=== PATIENT | female | born 1990 ===

== ENCOUNTER 2020-04-12 15:45 | Outpatient (CLI) | payer OTHER ==
--- NOTE | 2020-04-12 20:11 | Ultrasound Report ---
ULTRASOUND OBSTETRIC LIMITED ULTRASOUND BIOPHYSICAL PROFILE INDICATION / CLINICAL INFORMATION: BPP and SONAM. Clinical Gestational Age (GA): 38.3 weeks.days COMPARISON: None available. FINDINGS: BREATHING MOVEMENT = 2 GROSS BODY MOVEMENT = 2 TONE = 2 QUALITATIVE AMNIOTIC FLUID VOLUME = 2 TOTAL BIOPHYSICAL SCORE = 8/8 HEART RATE (beats per minute): 141 AMNIOTIC FLUID INDEX (cm) = 8.4 (normal = 7-24 cm) PRESENTATION: Cephalic. ADDITIONAL FINDINGS: None. IMPRESSION: 1. Biophysical Score = 8/8 Signer Name: Jamey Stratton MD Signed: 04/12/2020 8:06 PM Workstation Name: [id number]
[2020-04-12 20:27] VITALS: BP 123/65
--- NOTE | 2020-04-13 06:52 | Ultrasound Report ---
Please see combined report for ultrasound OB Limited and ultrasound biophysical profile. Combin ed report is under the ultrasound OB biophysical profile heading. Signer Name: Hilary Morales MD Signed: 04/13/2020 6:48 AM Workstation Name: [id number]
== END 2020-04-12 19:55 | disposition home or self-care (01) ==
LOC: TRG 15:45 → APU 16:41 → TRG 19:55
PROVIDERS: ATTEND Obstetrics & Gynecology
DX: O42.92 Full-term premature rupture of membranes, unspecified as to length of time between rupture and onset of labor (principal); Z3A.38 38 weeks gestation of pregnancy
CPT/HCPCS: 59025; 76815; 76819

== ENCOUNTER 2020-05-01 20:26 | Inpatient (IN) | payer OTHER ==
[2020-05-01] MEDS ORDERED: fentaNYL 100 MCG/2 ML INJ IV PRN (21:59)
[2020-05-01] MEDS ORDERED: TERBUTALINE 1 MG/1 ML INJ SUB-Q PRN (21:59)
[2020-05-01] MEDS ORDERED: ONDANSETRON 4 MG/2 ML INJ IV PRN (21:59)
[2020-05-01] MEDS ORDERED: ePHEDrine SULFATE 50 MG/1 ML INJ IV PRN (21:59)
[2020-05-01] MEDS ORDERED: BUTORPHANOL 2 MG/1 ML INJ IV PRN ×2 (21:59)
[2020-05-01] MEDS ORDERED: LIDOCAINE (2%) 20 MG/1 ML VIAL 20 ML MDV INFILTRATI ONE (21:59)
[2020-05-01] MEDS ORDERED: MINERAL OIL 30 ML ORAL LIQD PO PRN (21:59)
[2020-05-01] MEDS ORDERED: ACETAMINOPHEN 325 MG TAB PO PRN (21:59)
[2020-05-01] MEDS ORDERED: DINOPROSTONE 10 MG VAG SUPP VG ONE (22:15)
[2020-05-01] MEDS: LACTATED RINGERS 1,000 ML IV SCH (22:31)
[2020-05-01 22:52] LABS: Hematocrit 30.3 % (30.3-42.9); Hemoglobin 10.5 gm/dl (10.1-14.3); Mean Corpuscular HGB Conc 35 % (30-34); Mean Corpuscular Volume 95 fl (79-97); Platelet Count 279 K/mm3 (140-440); Red Blood Count 3.19 M/mm3 (3.65-5.03); Red Cell Distribution Width 13.6 % (13.2-15.2)
--- NOTE | 2020-05-02 01:11 | History and Physical Report ---
History of Present Illness Date of examination: 05/02/20 Date of admission: 05/01/20 20:26 Chief complaint: IOL History of present illness: 29 yo, G1 @ 41.2 wks, initiated care with [facility] at 16.3 wks gestation. Her has been uncomplicated. [facility] for IOL secondary to post-date . She reports + FM. Denies any VB or LOF. Labs: O+, antibody negative; rubella immune; RPR negative; HBsAg negative; HIV nega tive; GC/Chlamydia negative; quad screen negative; 1 hr gtt normal per PNR; GBS negative per PNR. Past History Past Medical History: no pertinent history Past Surgical History: no surgical history Family/Genetic History: diabetes (GM), hypertension (Mother), mental retardation (type unknown, uncle and aunt of pt have genetic disorder) Social history: , full code. denies: smoking, alcohol abuse, prescription drug abuse, IV drug use - Obstetrical History Expected Date of Delivery: 04/23/20 Actual Gestation: 41 Week(s) 2 Day(s) : 1 Para: 0 Hx # Term Pregnancies: 0 Number of Pregnancies: 0 Spontaneous Abortions: 0 Induced : 0 Number of Living Children: 0 Medications and Allergies Allergies Allergy/AdvReac Type Severity Reaction Status Date / Time No Known Allergies Allergy Unverified 04/12/20 17:11 Home Medications Medication Instructions Recorded Confirmed Last Taken Type No Known Home Medications [No 05/01/20 05/01/20 Unknown History Reported Home Medications] Active Meds: Active Medications Acetaminophen (Tylenol) 650 mg PO Q4H PRN PRN Reason: Pain, Mild (1-3) Butorphanol Tartrate (Stadol) 2 mg IV Q2H PRN PRN Reason: Pain , Severe (7-10) Butorphanol Tartrate (Stadol) 1 mg IV Q2H PRN PRN Reason: Pain, Moderate(4-6) LABOR PAIN Ephedrine Sulfate (Ephedrine Sulfate) 10 mg IV Q2M PRN PRN Reason: Hypotension Fentanyl (Sublimaze) 100 mcg IV Q2H PRN PRN Reason: Pain,Severe (7-10) LABOR PAIN Lactated Ringer's (Lactated Ringers) 1,000 mls @ 125 mls/hr IV DIRECT ADRIENNE Last Admin: 12/01/20 22:31 Dose: 125 mls/hr Documented by: Oxytocin/Sodium Chloride (Pitocin/Ns 30 Unit/500ml) 30 units in 500 mls @ 40 mls/hr IV TITR ADRIENNE; Protocol Mineral Oil (Mineral Oil) 30 ml PO QHS PRN PRN Reason: Constipation Ondansetron HCl (Zofran) 4 mg IV Q8H PRN PRN Reason: Nausea And Vomiting Terbutaline Sulfate (Brethine) 0.25 mg SUB-Q ONCE PRN PRN Reason: Hyperstimulation/Hypertonicity Review of Systems All systems: negative Genitourinary: contractions (irregular) - Vital Signs Vital signs: Vital Signs Temp Pulse Resp BP 99.1 F 81 18 120/77 05/01/20 20:58 05/01/20 20:58 05/01/20 20:58 05/01/20 20:58 Temp Pulse Resp BP Pulse Ox 99.1 F 70 18 120/77 98 05/01/20 20:58 05/02/20 00:59 05/01/20 20:58 05/01/20 20:59 05/02/20 00:59 - Physical Exam Breasts: Positive: normal Cardiovascular: Regular rate Lungs: Positive: Normal air movement Abdomen: Positive: other (gravid) Uterus: Positive: enlarged (S=D) - Obstetrical FHR: category 1 Uterine Contraction Monitor Mode: External Cervical Dilatation: 1 (per RN) Cervical Effacement Percentage: 40 (per RN) station: -3 Uterine Contraction Frequency (min): 2-5 Uterine Contraction Pattern: Irregular Uterine Tone Measurement Phase: Resting Uterine Contraction Intensity: Mild Results Result Diagrams: 05/01/20 21:59 Abnormal lab results 05/01/20 Range/Units 21:59 RBC 3.19 L (3.65-5.03) M/mm3 MCH 33 H (28-32) pg MCHC 35 H (30-34) % All other labs normal. Assessment and Plan - Patient Problems (1) Encounter for induction of labor Current Visit: Yes Status: Acute Plan to address problem: Place Cervidil x 12 hrs as tolerated Pain meds as desired per order Anticipate (2) Patient is [employer] Current Visit: Yes Status: Acute
[2020-05-02] MEDS: LACTATED RINGERS 1,000 ML IV SCH ×2 (06:31→13:26)
[2020-05-02] MEDS ORDERED: NITRAZINE (URINE TESTING PAPER) MC ONE (11:10)
--- NOTE | 2020-05-02 12:34 | Progress Note ---
Assessment and Plan A: IUP at 41 2/7 weeks Category I tracing Latent Labor GBS Negative P: Cervidil Induction Subjective - Subjective Date of service: 05/02/20 Patient reports: loss of fluid (SROM of a small amount of clear fluid at 1100 per RN), movement normal, contractions Objective - Vital Signs Vital Signs: Vital Signs - 12hr 05/02/20 05/02/20 05/02/20 00:29 00:34 00:39 Temperature Pulse Rate 70 67 64 Blood Pressure Blood Pressure [Right] O2 Sat by Pulse 99 98 98 Oximetry 05/02/20 05/02/20 05/02/20 00:44 00:49 00:54 Temperature Pulse Rate 64 63 62 Blood Pressure Blood Pressure [Right] O2 Sat by Pulse 99 99 99 Oximetry 05/02/20 05/02/20 05/02/20 00:59 01:04 01:11 Temperature Pulse Rate 70 67 59 L Blood Pressure Blood Pressure [Right] O2 Sat by Pulse 98 98 99 Oximetry 05/02/20 05/02/20 05/02/20 01:16 01:21 01:26 Temperature Pulse Rate 60 64 69 Blood Pressure Blood Pressure [Right] O2 Sat by Pulse 99 99 98 Oximetry 05/02/20 05/02/20 05/02/20 01:29 01:31 01:36 Temperature 98.9 F Pulse Rate 58 L 57 L 79 Blood Pressure 140/72 Blood Pressure 140/72 [Right] O2 Sat by Pulse 99 99 Oximetry 05/02/20 05/02/20 05/02/20 01:41 01:46 01:51 Temperature Pulse Rate 65 70 69 Blood Pressure Blood Pressure [Right] O2 Sat by Pulse 99 99 99 Oximetry 05/02/20 05/02/20 05/02/20 01:56 02:01 02:06 Temperature Pulse Rate 71 63 69 Blood Pressure Blood Pressure [Right] O2 Sat by Pulse 99 98 99 Oximetry 05/02/20 05/02/20 05/02/20 02:11 02:16 02:21 Temperature Pulse Rate 71 75 72 Blood Pressure Blood Pressure [Right] O2 Sat by Pulse 99 99 99 Oximetry 05/02/20 05/02/20 05/02/20 02:26 02:31 02:36 Temperature Pulse Rate 74 73 73 Blood Pressure Blood Pressure [Right] O2 Sat by Pulse 98 98 98 Oximetry 05/02/20 05/02/20 05/02/20 02:41 02:46 02:51 Temperature Pulse Rate 68 72 75 Blood Pressure Blood Pressure [Right] O2 Sat by Pulse 100 100 99 Oximetry 05/02/20 05/02/20 05/02/20 03:04 03:09 03:14 Temperature Pulse Rate 68 70 73 Blood Pressure Blood Pressure [Right] O2 Sat by Pulse 99 98 99 Oximetry 05/02/20 05/02/20 05/02/20 03:19 03:24 03:29 Temperature Pulse Rate 80 79 82 Blood Pressure Blood Pressure [Right] O2 Sat by Pulse 99 99 100 Oximetry 05/02/20 05/02/20 05/02/20 03:34 03:39 03:44 Temperature Pulse Rate 67 86 72 Blood Pressure Blood Pressure [Right] O2 Sat by Pulse 99 99 98 Oximetry 05/02/20 05/02/20 05/02/20 03:49 03:54 03:59 Temperature Pulse Rate 88 78 83 Blood Pressure Blood Pressure [Right] O2 Sat by Pulse 98 99 98 Oximetry 05/02/20 05/02/20 05/02/20 04:04 04:09 04:20 Temperature Pulse Rate 76 80 83 Blood Pressure Blood Pressure [Right] O2 Sat by Pulse 98 97 99 Oximetry 05/02/20 05/02/20 05/02/20 04:25 04:30 04:35 Temperature Pulse Rate 76 83 85 Blood Pressure Blood Pressure [Right] O2 Sat by Pulse 98 99 99 Oximetry 05/02/20 05/02/20 05/02/20 04:40 04:45 04:50 Temperature Pulse Rate 88 83 78 Blood Pressure Blood Pressure [Right] O2 Sat by Pulse 97 98 97 Oximetry 05/02/20 05/02/20 05/02/20 04:55 05:00 05:05 Temperature Pulse Rate 79 78 71 Blood Pressure Blood Pressure [Right] O2 Sat by Pulse 97 97 97 Oximetry 05/02/20 05/02/20 05/02/20 05:10 05:15 05:20 Temperature Pulse Rate 67 83 69 Blood Pressure Blood Pressure [Right] O2 Sat by Pulse 98 98 96 Oximetry 05/02/20 05/02/20 05/02/20 05:25 05:30 05:40 Temperature Pulse Rate 76 91 H 77 Blood Pressure Blood Pressure [Right] O2 Sat by Pulse 95 98 99 Oximetry 05/02/20 05/02/20 05/02/20 05:45 05:50 05:55 Temperature Pulse Rate 71 77 68 Blood Pressure Blood Pressure [Right] O2 Sat by Pulse 99 98 99 Oximetry 05/02/20 05/02/20 05/02/20 06:00 06:05 06:10 Temperature Pulse Rate 74 73 65 Blood Pressure Blood Pressure [Right] O2 Sat by Pulse 100 100 99 Oximetry 05/02/20 05/02/20 05/02/20 06:15 06:20 06:25 Temperature Pulse Rate 63 63 68 Blood Pressure Blood Pressure [Right] O2 Sat by Pulse 98 98 98 Oximetry 05/02/20 05/02/20 05/02/20 06:27 06:30 06:35 Temperature 98.8 F Pulse Rate 70 63 Blood Pressure Blood Pressure [Right] O2 Sat by Pulse 99 98 Oximetry 05/02/20 05/02/20 05/02/20 06:40 06:45 06:50 Temperature Pulse Rate 78 74 70 Blood Pressure Blood Pressure [Right] O2 Sat by Pulse 99 99 98 Oximetry 05/02/20 05/02/20 05/02/20 06:55 07:00 07:05 Temperature Pulse Rate 74 83 66 Blood Pressure Blood Pressure [Right] O2 Sat by Pulse 98 99 98 Oximetry 05/02/20 05/02/20 05/02/20 07:10 07:15 07:20 Temperature Pulse Rate 76 75 74 Blood Pressure Blood Pressure [Right] O2 Sat by Pulse 97 97 97 Oximetry 05/02/20 05/02/20 05/02/20 07:25 07:30 07:46 Temperature Pulse Rate 74 89 73 Blood Pressure Blood Pressure [Right] O2 Sat by Pulse 97 97 98 Oximetry 05/02/20 05/02/20 05/02/20 07:51 07:56 08:01 Temperature Pulse Rate 93 H 74 70 Blood Pressure Blood Pressure [Right] O2 Sat by Pulse 97 97 98 Oximetry 05/02/20 05/02/20 05/02/20 08:06 08:11 08:16 Temperature Pulse Rate 77 94 H 84 Blood Pressure Blood Pressure [Right] O2 Sat by Pulse 98 98 98 Oximetry 05/02/20 05/02/20 05/02/20 08:21 08:26 08:31 Temperature Pulse Rate 69 91 H 67 Blood Pressure Blood Pressure [Right] O2 Sat by Pulse 98 98 98 Oximetry 05/02/20 05/02/20 05/02/20 08:36 08:41 08:46 Temperature Pulse Rate 72 72 66 Blood Pressure Blood Pressure [Right] O2 Sat by Pulse 99 98 99 Oximetry 05/02/20 05/02/20 05/02/20 08:51 08:56 09:06 Temperature Pulse Rate 66 68 74 Blood Pressure Blood Pressure [Right] O2 Sat by Pulse 98 97 99 Oximetry 05/02/20 05/02/20 05/02/20 09:11 09:16 09:21 Temperature Pulse Rate 74 73 71 Blood Pressure Blood Pressure [Right] O2 Sat by Pulse 99 97 98 Oximetry 05/02/20 05/02/20 05/02/20 09:26 09:31 09:36 Temperature Pulse Rate 72 66 66 Blood Pressure Blood Pressure [Right] O2 Sat by Pulse 98 97 97 Oximetry 05/02/20 05/02/20 05/02/20 09:41 09:46 09:51 Temperature Pulse Rate 67 71 64 Blood Pressure Blood Pressure [Right] O2 Sat by Pulse 97 98 98 Oximetry 05/02/20 05/02/20 05/02/20 09:56 10:01 10:06 Temperature Pulse Rate 63 88 71 Blood Pressure Blood Pressure [Right] O2 Sat by Pulse 98 98 98 Oximetry 05/02/20 05/02/20 05/02/20 10:11 10:16 10:21 Temperature Pulse Rate 66 64 64 Blood Pressure Blood Pressure [Right] O2 Sat by Pulse 97 98 97 Oximetry 05/02/20 05/02/20 05/02/20 10:34 10:39 10:40 Temperature Pulse Rate 63 71 67 Blood Pressure 133/78 Blood Pressure [Right] O2 Sat by Pulse 98 98 Oximetry 05/02/20 05/02/20 05/02/20 10:43 10:44 10:49 Temperature Pulse Rate 68 75 82 Blood Pressure 116/66 Blood Pressure [Right] O2 Sat by Pulse 98 98 Oximetry 05/02/20 05/02/20 05/02/20 10:54 10:59 11:04 Temperature Pulse Rate 65 81 79 Blood Pressure Blood Pressure [Right] O2 Sat by Pulse 99 98 98 Oximetry 05/02/20 05/02/20 05/02/20 11:09 11:14 11:19 Temperature Pulse Rate 77 84 76 Blood Pressure Blood Pressure [Right] O2 Sat by Pulse 99 99 99 Oximetry 05/02/20 05/02/20 05/02/20 11:24 11:29 11:34 Temperature Pulse Rate 65 80 63 Blood Pressure Blood Pressure [Right] O2 Sat by Pulse 99 98 99 Oximetry 05/02/20 05/02/20 05/02/20 11:39 11:44 11:49 Temperature Pulse Rate 79 71 79 Blood Pressure Blood Pressure [Right] O2 Sat by Pulse 98 97 99 Oximetry 05/02/20 05/02/20 05/02/20 11:54 12:07 12:12 Temperature Pulse Rate 71 71 63 Blood Pressure Blood Pressure [Right] O2 Sat by Pulse 98 98 98 Oximetry 05/02/20 05/02/20 12:17 12:22 Temperature Pulse Rate 83 82 Blood Pressure Blood Pressure [Right] O2 Sat by Pulse 98 99 Oximetry - Exam Breasts: normal Cardiovascular: Regular rate Lungs: Normal air movement Abdomen: Present: normal appearance, soft Uterus: Present: normal, firm, fundal height above umbilicus FHR: category 1 Uterine Contraction Monitor Mode: External Cervical Dilatation: 2 (small amount of clear fluid noted on exam) Cervical Effacement Percentage: 50 station: -1 Uterine Contraction Frequency (min): 2 Uterine Contraction Pattern: Regular Uterine Tone Measurement Phase: Resting Uterine Contraction Intensity: Mild Extremities: normal - Labs Labs: Abnormal Labs 05/01/20 21:59 RBC 3.19 L MCH 33 H MCHC 35 H Laboratory Results - last 24 hr 05/01/20 05/01/20 05/01/20 21:46 21:59 21:59 WBC 7.3 RBC 3.19 L Hgb 10.5 Hct 30.3 MCV 95 MCH 33 H MCHC 35 H RDW 13.6 Plt Count 279 Syphilis IgG Antibody Nonreactive Blood Type O POSITIVE Antibody Screen Negative
[2020-05-02] MEDS ORDERED: DINOPROSTONE 10 MG VAG SUPP VG ONE (12:35)
[2020-05-03] MEDS: OXYTOCIN DRIP 30 UNITS/500 ML BAG IV SCH (06:27)
[2020-05-03] MEDS ORDERED: AMPICILLIN/NS 2 GM/100 ML 2 GM/100 ML BAG IV ONE (10:00)
--- NOTE | 2020-05-03 10:15 | Anesthesia Consultation ---
Anesthesia Consult and Med Hx Date of service: 05/03/20 - Airway Anesthetic Teeth Evaluation: Good ROM Head & Neck: Adequate Mental/Hyoid Distance: Adequate Mallampati Class: Class II Intubation Access Assessment: Probably Good - Pulmonary Exam CTA: Yes - Cardiac Exam Cardiac Exam: RRR - Pre-Operative Health Status ASA Pre-Surgery Classification: ASA2 Proposed Anesthetic Plan: Epidural - Pulmonary Hx Asthma: No - Cardiovascular System Hx Hypertension: No - Central Nervous System Hx Seizures: No Hx Psychiatric Problems: No - Endocrine Hx Renal Disease: No Hx Hypothyroidism: No Hx Hyperthyroidism: No - Hematic Hx Anemia: No Hx Sickle Cell Disease: No - Other Systems Hx Alcohol Use: No
[2020-05-03] MEDS ORDERED: ePHEDrine SULFATE 50 MG/1 ML INJ IV PRN (10:30)
[2020-05-03] MEDS ORDERED: NALOXONE 2 MG/2 ML INJ IV PRN (10:30)
[2020-05-03] MEDS: LACTATED RINGERS 1,000 ML IV SCH ×2 (12:00→13:00)
--- NOTE | 2020-05-03 13:06 | Progress Note ---
Labor Epidural - Labor Epidural Start Time: 12:49 Stop Time: 13:01 Performed by:: JIAN ARMENTA Procedure: Patient is requesting epidural for labor pain. H&P, and labs reviewed. Procedure explained, questions answered, consent obtained. Patient in sitting position with blood pressure cuff and pulse ox on and working. Timeout performed immediately before start of procedure. Sterile betadine prep/drape. 3 mL 1% lidocaine skin wheal at L[3]-L[4]. 18-gauge REHAPP epidural needle advanced to [id number] with saline at [7] cm. Epidural dexmedetomidine [30] mcg administered. Epidural catheter advanced to [12] cm, negative aspiration for blood and csf, negative test dose 3 ml 1.5% lidocaine with epinephrine. Sterile steri-strips and tegaderm applied, followed by tape reinforcement. Patient tolerated procedure well. Hiram MOY
[2020-05-03] MEDS: fentaNYL-BUPIV 2 MCG/ML-0.125% 200 MCG/100 ML BAG EPIDURAL SCH (13:50)
[2020-05-03] MEDS: AMPICILLIN/NS 1 GM/50 ML 1 GM/50 ML BAG IV SCH ×3 (15:28→23:27)
--- NOTE | 2020-05-03 19:20 | Progress Note ---
Assessment and Plan A: IUP@ 41.3 wks postdates [facility] PROM ([facility]) P: Continue monitoring ABT for PROM Pain med/ Epidural prn Anticipate - Patient Problems (1) SPROM (prolonged spontaneous rupture of membranes) Current Visit: Yes Status: Acute Subjective - Subjective Date of service: 05/03/20 Principal diagnosis: postdates Patient reports: movement normal, contractions Objective - Vital Signs Vital Signs: Vital Signs - 12hr 05/03/20 05/03/20 05/03/20 07:14 07:19 07:20 Temperature Pulse Rate 88 71 68 Respiratory Rate Blood Pressure 130/78 Blood Pressure [Right] O2 Sat by Pulse 100 99 Oximetry 05/03/20 05/03/20 05/03/20 07:24 07:29 07:32 Temperature Pulse Rate 76 73 67 Respiratory Rate Blood Pressure 142/93 Blood Pressure [Right] O2 Sat by Pulse 99 99 Oximetry 05/03/20 05/03/20 05/03/20 07:34 07:37 07:39 Temperature 98.3 F Pulse Rate 69 73 69 Respiratory 20 Rate Blood Pressure Blood Pressure 130/78 [Right] O2 Sat by Pulse 99 99 99 Oximetry 05/03/20 05/03/20 05/03/20 07:50 07:55 08:00 Temperature Pulse Rate 71 69 76 Respiratory Rate Blood Pressure Blood Pressure [Right] O2 Sat by Pulse 99 99 99 Oximetry 05/03/20 05/03/20 05/03/20 08:04 08:05 08:10 Temperature Pulse Rate 67 69 79 Respiratory Rate Blood Pressure 168/76 Blood Pressure [Right] O2 Sat by Pulse 99 99 Oximetry 05/03/20 05/03/20 05/03/20 08:15 08:20 08:25 Temperature Pulse Rate 61 58 L 72 Respiratory Rate Blood Pressure Blood Pressure [Right] O2 Sat by Pulse 98 98 99 Oximetry 05/03/20 05/03/20 05/03/20 08:30 08:33 08:35 Temperature Pulse Rate 80 70 67 Respiratory Rate Blood Pressure 129/58 Blood Pressure [Right] O2 Sat by Pulse 99 99 Oximetry 05/03/20 05/03/20 05/03/20 08:40 08:45 08:50 Temperature Pulse Rate 51 L 54 L 74 Respiratory Rate Blood Pressure Blood Pressure [Right] O2 Sat by Pulse 100 99 99 Oximetry 1205/03/20 05/03/20 08:55 09:00 09:02 Temperature Pulse Rate 61 70 62 Respiratory Rate Blood Pressure 137/77 Blood Pressure [Right] O2 Sat by Pulse 98 99 Oximetry 05/03/20 05/03/20 05/03/20 09:05 09:10 09:15 Temperature Pulse Rate 65 74 64 Respiratory Rate Blood Pressure Blood Pressure [Right] O2 Sat by Pulse 99 99 98 Oximetry 05/03/20 05/03/20 05/03/20 09:20 09:25 09:30 Temperature Pulse Rate 78 69 73 Respiratory Rate Blood Pressure Blood Pressure [Right] O2 Sat by Pulse 98 99 99 Oximetry 05/03/20 05/03/20 05/03/20 09:33 09:35 09:39 Temperature 99.5 F Pulse Rate 60 64 Respiratory Rate Blood Pressure 129/63 Blood Pressure [Right] O2 Sat by Pulse 98 Oximetry 05/03/20 05/03/20 05/03/20 09:40 09:45 09:50 Temperature Pulse Rate 75 78 112 H Respiratory Rate Blood Pressure Blood Pressure [Right] O2 Sat by Pulse 98 99 97 Oximetry 05/03/20 05/03/20 05/03/20 09:55 10:00 10:04 Temperature 98.8 F Pulse Rate 72 78 80 Respiratory 20 Rate Blood Pressure 159/97 Blood Pressure [Right] O2 Sat by Pulse 99 99 Oximetry 05/03/20 05/03/20 05/03/20 10:05 10:13 10:18 Temperature Pulse Rate 71 72 88 Respiratory Rate Blood Pressure Blood Pressure [Right] O2 Sat by Pulse 99 99 99 Oximetry 05/03/20 05/03/20 05/03/20 10:23 10:28 10:33 Temperature Pulse Rate 69 86 89 Respiratory Rate Blood Pressure Blood Pressure [Right] O2 Sat by Pulse 98 98 98 Oximetry 05/03/20 05/03/20 05/03/20 10:38 10:43 10:48 Temperature Pulse Rate 77 80 74 Respiratory Rate Blood Pressure Blood Pressure [Right] O2 Sat by Pulse 98 99 99 Oximetry 05/03/20 05/03/20 05/03/20 10:53 10:58 11:02 Temperature 98.7 F Pulse Rate 71 78 Respiratory Rate Blood Pressure Blood Pressure [Right] O2 Sat by Pulse 98 99 Oximetry 05/03/20 05/03/20 05/03/20 11:03 11:04 11:08 Temperature Pulse Rate 84 77 80 Respiratory Rate Blood Pressure 158/84 Blood Pressure [Right] O2 Sat by Pulse 99 98 Oximetry 05/03/20 05/03/20 05/03/20 11:13 11:18 11:23 Temperature Pulse Rate 74 59 L 90 Respiratory Rate Blood Pressure Blood Pressure [Right] O2 Sat by Pulse 99 99 100 Oximetry 05/03/20 05/03/20 05/03/20 11:28 11:33 11:34 Temperature Pulse Rate 63 69 75 Respiratory Rate Blood Pressure 178/75 Blood Pressure [Right] O2 Sat by Pulse 99 99 Oximetry 05/03/20 05/03/20 05/03/20 11:38 11:43 11:48 Temperature Pulse Rate 83 93 H 77 Respiratory Rate Blood Pressure Blood Pressure [Right] O2 Sat by Pulse 99 100 99 Oximetry 05/03/20 05/03/20 05/03/20 11:53 11:58 12:00 Temperature 98.2 F Pulse Rate 86 73 Respiratory Rate Blood Pressure Blood Pressure [Right] O2 Sat by Pulse 99 100 Oximetry 05/03/20 05/03/20 05/03/20 12:03 12:04 12:08 Temperature Pulse Rate 85 75 80 Respiratory Rate Blood Pressure 151/78 Blood Pressure [Right] O2 Sat by Pulse 99 100 Oximetry 05/03/20 05/03/20 05/03/20 12:13 12:18 12:23 Temperature Pulse Rate 77 76 85 Respiratory Rate Blood Pressure Blood Pressure [Right] O2 Sat by Pulse 100 99 100 Oximetry 05/03/20 05/03/20 05/03/20 12:28 12:33 12:34 Temperature Pulse Rate 95 H 77 76 Respiratory Rate Blood Pressure 167/79 Blood Pressure [Right] O2 Sat by Pulse 100 100 Oximetry 05/03/20 05/03/20 05/03/20 12:38 12:43 12:48 Temperature Pulse Rate 78 75 77 Respiratory Rate Blood Pressure Blood Pressure [Right] O2 Sat by Pulse 100 98 100 Oximetry 05/03/20 05/03/20 05/03/20 12:53 12:58 13:01 Temperature Pulse Rate 78 74 85 Respiratory Rate Blood Pressure 150/78 Blood Pressure [Right] O2 Sat by Pulse 99 98 Oximetry 05/03/20 05/03/20 05/03/20 13:03 13:04 13:08 Temperature Pulse Rate 77 79 78 Respiratory Rate Blood Pressure 157/82 128/60 Blood Pressure [Right] O2 Sat by Pulse 99 100 Oximetry 05/03/20 05/03/20 05/03/20 13:10 13:13 13:17 Temperature Pulse Rate 61 63 64 Respiratory Rate Blood Pressure 142/64 135/63 134/71 Blood Pressure [Right] O2 Sat by Pulse 99 Oximetry 05/03/20 05/03/20 05/03/20 13:18 13:19 13:22 Temperature Pulse Rate 67 64 69 Respiratory Rate Blood Pressure 125/73 121/70 Blood Pressure [Right] O2 Sat by Pulse 100 Oximetry 05/03/20 05/03/20 05/03/20 13:23 13:26 13:28 Temperature Pulse Rate 67 61 66 Respiratory Rate Blood Pressure 138/74 132/59 Blood Pressure [Right] O2 Sat by Pulse 100 99 Oximetry 05/03/20 05/03/20 05/03/20 13:29 13:31 13:33 Temperature 98.5 F Pulse Rate 70 65 65 Respiratory Rate Blood Pressure 156/68 130/60 Blood Pressure [Right] O2 Sat by Pulse 98 Oximetry 05/03/20 05/03/20 05/03/20 13:34 13:37 13:38 Temperature Pulse Rate 63 59 L 59 L Respiratory Rate Blood Pressure 135/63 136/60 Blood Pressure [Right] O2 Sat by Pulse 98 Oximetry 05/03/20 05/03/20 05/03/20 13:40 13:43 13:46 Temperature Pulse Rate 71 67 63 Respiratory Rate Blood Pressure 126/67 135/62 125/64 Blood Pressure [Right] O2 Sat by Pulse 100 Oximetry 05/03/20 05/03/20 05/03/20 13:48 13:49 13:52 Temperature Pulse Rate 74 64 57 L Respiratory Rate Blood Pressure 133/63 106/61 Blood Pressure [Right] O2 Sat by Pulse 100 Oximetry 05/03/20 05/03/20 05/03/20 13:53 13:55 13:58 Temperature Pulse Rate 60 73 56 L Respiratory Rate Blood Pressure 138/62 140/65 Blood Pressure [Right] O2 Sat by Pulse 98 100 Oximetry 05/03/20 05/03/20 05/03/20 14:02 14:03 14:05 Temperature Pulse Rate 54 L 78 61 Respiratory Rate Blood Pressure 115/56 136/61 Blood Pressure [Right] O2 Sat by Pulse 99 Oximetry 05/03/20 05/03/20 05/03/20 14:08 14:10 14:13 Temperature Pulse Rate 54 L 72 68 Respiratory Rate Blood Pressure 109/51 144/66 Blood Pressure [Right] O2 Sat by Pulse 99 99 Oximetry 05/03/20 05/03/20 05/03/20 14:14 14:16 14:18 Temperature Pulse Rate 65 62 62 Respiratory Rate Blood Pressure 129/60 141/63 Blood Pressure [Right] O2 Sat by Pulse 98 Oximetry 05/03/20 05/03/20 05/03/20 14:19 14:22 14:23 Temperature 98.4 F Pulse Rate 65 57 L 55 L Respiratory Rate Blood Pressure 132/64 115/57 Blood Pressure [Right] O2 Sat by Pulse 98 Oximetry 05/03/20 05/03/20 05/03/20 14:25 14:28 14:29 Temperature Pulse Rate 81 62 59 L Respiratory Rate Blood Pressure 115/56 135/63 Blood Pressure [Right] O2 Sat by Pulse 99 Oximetry 05/03/20 05/03/20 05/03/20 14:31 14:33 14:34 Temperature Pulse Rate 65 58 L 54 L Respiratory Rate Blood Pressure 133/59 128/60 Blood Pressure [Right] O2 Sat by Pulse 100 Oximetry 05/03/20 05/03/20 05/03/20 14:37 14:38 14:40 Temperature Pulse Rate 70 71 56 L Respiratory Rate Blood Pressure 139/63 124/58 Blood Pressure [Right] O2 Sat by Pulse 100 Oximetry 05/03/20 05/03/20 05/03/20 14:43 14:46 14:48 Temperature Pulse Rate 65 53 L 65 Respiratory Rate Blood Pressure 146/63 141/60 Blood Pressure [Right] O2 Sat by Pulse 100 98 Oximetry 05/03/20 05/03/20 05/03/20 14:50 14:52 14:53 Temperature Pulse Rate 72 67 68 Respiratory Rate Blood Pressure 149/88 147/66 Blood Pressure [Right] O2 Sat by Pulse 100 Oximetry 05/03/20 05/03/20 05/03/20 14:56 14:58 14:59 Temperature Pulse Rate 55 L 61 63 Respiratory Rate Blood Pressure 125/58 142/61 Blood Pressure [Right] O2 Sat by Pulse 99 Oximetry 05/03/20 05/03/20 05/03/20 15:01 15:03 15:05 Temperature Pulse Rate 73 57 L 66 Respiratory Rate Blood Pressure 172/72 135/63 Blood Pressure [Right] O2 Sat by Pulse 98 Oximetry 05/03/20 05/03/20 05/03/20 15:07 15:08 15:10 Temperature Pulse Rate 55 L 54 L 59 L Respiratory Rate Blood Pressure 141/62 114/58 Blood Pressure [Right] O2 Sat by Pulse 98 Oximetry 05/03/20 05/03/20 05/03/20 15:13 15:16 15:18 Temperature Pulse Rate 72 64 52 L Respiratory Rate Blood Pressure 135/62 149/65 Blood Pressure [Right] O2 Sat by Pulse 99 100 Oximetry 05/03/20 05/03/20 05/03/20 15:19 15:22 15:23 Temperature Pulse Rate 64 63 58 L Respiratory Rate Blood Pressure 133/61 136/62 Blood Pressure [Right] O2 Sat by Pulse 100 Oximetry 05/03/20 05/03/20 05/03/20 15:26 15:28 15:32 Temperature Pulse Rate 56 L 66 57 L Respiratory Rate Blood Pressure 113/53 144/65 122/57 Blood Pressure [Right] O2 Sat by Pulse 100 Oximetry 05/03/20 05/03/20 05/03/20 15:33 15:34 15:38 Temperature 98.4 F Pulse Rate 68 60 68 Respiratory Rate Blood Pressure 138/63 Blood Pressure [Right] O2 Sat by Pulse 97 100 Oximetry 05/03/20 05/03/20 05/03/20 15:43 15:48 15:53 Temperature Pulse Rate 66 71 70 Respiratory Rate Blood Pressure Blood Pressure [Right] O2 Sat by Pulse 98 100 100 Oximetry 05/03/20 05/03/20 05/03/20 15:58 16:03 16:06 Temperature Pulse Rate 62 66 61 Respiratory Rate Blood Pressure 128/58 Blood Pressure [Right] O2 Sat by Pulse 99 99 Oximetry 05/03/20 05/03/20 05/03/20 16:08 16:13 16:18 Temperature Pulse Rate 63 61 66 Respiratory Rate Blood Pressure Blood Pressure [Right] O2 Sat by Pulse 99 98 99 Oximetry 05/03/20 05/03/20 05/03/20 16:23 16:28 16:33 Temperature Pulse Rate 59 L 64 68 Respiratory Rate Blood Pressure Blood Pressure [Right] O2 Sat by Pulse 99 99 100 Oximetry 05/03/20 05/03/20 05/03/20 16:36 16:38 16:43 Temperature Pulse Rate 67 67 68 Respiratory Rate Blood Pressure 138/62 Blood Pressure [Right] O2 Sat by Pulse 100 100 Oximetry 05/03/20 05/03/20 05/03/20 16:48 16:53 16:58 Temperature Pulse Rate 65 72 63 Respiratory Rate Blood Pressure Blood Pressure [Right] O2 Sat by Pulse 100 98 98 Oximetry 05/03/20 05/03/20 05/03/20 17:03 17:05 17:08 Temperature Pulse Rate 63 63 57 L Respiratory Rate Blood Pressure 138/60 Blood Pressure [Right] O2 Sat by Pulse 99 99 Oximetry 05/03/20 05/03/20 05/03/20 17:13 17:18 17:23 Temperature Pulse Rate 53 L 61 71 Respiratory Rate Blood Pressure Blood Pressure [Right] O2 Sat by Pulse 98 98 100 Oximetry 05/03/20 05/03/20 05/03/20 17:28 17:33 17:36 Temperature Pulse Rate 73 67 66 Respiratory Rate Blood Pressure 140/65 Blood Pressure [Right] O2 Sat by Pulse 99 100 Oximetry 05/03/20 05/03/20 05/03/20 17:38 17:43 17:48 Temperature Pulse Rate 69 66 68 Respiratory Rate Blood Pressure Blood Pressure [Right] O2 Sat by Pulse 99 99 100 Oximetry 05/03/20 05/03/20 05/03/20 17:53 17:58 18:03 Temperature Pulse Rate 71 69 66 Respiratory Rate Blood Pressure Blood Pressure [Right] O2 Sat by Pulse 100 99 99 Oximetry 05/03/20 05/03/20 05/03/20 18:05 18:08 18:13 Temperature Pulse Rate 65 67 70 Respiratory Rate Blood Pressure 143/66 Blood Pressure [Right] O2 Sat by Pulse 100 100 Oximetry 05/03/20 05/03/20 05/03/20 18:18 18:23 18:28 Temperature Pulse Rate 64 64 65 Respiratory Rate Blood Pressure Blood Pressure [Right] O2 Sat by Pulse 100 100 97 Oximetry 05/03/20 05/03/20 05/03/20 18:33 18:36 18:38 Temperature Pulse Rate 70 65 69 Respiratory Rate Blood Pressure 141/63 Blood Pressure [Right] O2 Sat by Pulse 99 100 Oximetry 05/03/20 05/03/20 05/03/20 18:43 18:48 18:53 Temperature Pulse Rate 67 64 69 Respiratory Rate Blood Pressure Blood Pressure [Right] O2 Sat by Pulse 99 100 100 Oximetry 05/03/20 05/03/20 05/03/20 18:58 19:03 19:05 Temperature Pulse Rate 65 64 71 Respiratory Rate Blood Pressure 134/76 Blood Pressure [Right] O2 Sat by Pulse 99 100 Oximetry 05/03/20 19:08 Temperature Pulse Rate 65 Respiratory Rate Blood Pressure Blood Pressure [Right] O2 Sat by Pulse 100 Oximetry - Exam Breasts: normal Abdomen: Present: normal appearance, soft, normal bowel sounds Vulva: both: normal Uterus: Present: normal, other (gravid) FHR: auscultation normal, category 1 Uterine Contraction Monitor Mode: External Cervical Dilatation: 4 Cervical Effacement Percentage: 80 station: -1 Uterine Contraction Frequency (min): irreg Uterine Contraction Pattern: Irregular Uterine Tone Measurement Phase: Resting Uterine Contraction Intensity: Mild Extremities: normal - Labs Labs: Abnormal Labs 05/01/20 21:59 RBC 3.19 L MCH 33 H MCHC 35 H Laboratory Results - last 24 hr 05/02/20 Unknown Coronavirus (PCR) Negative
[2020-05-04] MEDS: AMPICILLIN/NS 1 GM/50 ML 1 GM/50 ML BAG IV SCH ×6 (03:38→23:39)
[2020-05-04 06:41] LABS: Hematocrit 31.2 % (30.3-42.9); Hemoglobin 10.5 gm/dl (10.1-14.3); Mean Corpuscular HGB Conc 34 % (30-34); Mean Corpuscular Volume 96 fl (79-97); Platelet Count 239 K/mm3 (140-440); Red Blood Count 3.24 M/mm3 (3.65-5.03); Red Cell Distribution Width 13.9 % (13.2-15.2)
[2020-05-04 07:04] LABS: Alanine Aminotransferase 12 units/L (7-56); Uric Acid 5.9 mg/dL (3.5-7.6)
[2020-05-04] MEDS: LACTATED RINGERS 1,000 ML IV SCH ×2 (07:29→16:16)
[2020-05-04] MEDS: fentaNYL-BUPIV 2 MCG/ML-0.125% 200 MCG/100 ML BAG EPIDURAL SCH ×2 (08:13→17:52)
--- NOTE | 2020-05-04 09:39 | Progress Note ---
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 Her has been uncomplicated. She presents to [facility] on 05/01/2020 for IOL secondary to post-date . She reports + FM. Denies any VB or LOF. Labs: O+, antibody negative; rubella immune; RPR negative; HBsAg negative; HIV negative; GC/Chlamydia negative; quad screen negative; 1 hr gtt normal per PNR; GBS negative per PNR. Patient reports: loss of fluid (clear), movement normal, contractions Objective - Vital Signs Vital Signs: Vital Signs - 12hr 05/03/20 05/03/20 05/03/20 21:33 21:37 21:38 Temperature Pulse Rate 72 72 75 Respiratory Rate Blood Pressure 142/65 Blood Pressure [Left] O2 Sat by Pulse 100 100 Oximetry 05/03/20 05/03/20 05/03/20 21:43 21:48 21:53 Temperature Pulse Rate 69 73 71 Respiratory Rate Blood Pressure Blood Pressure [Left] O2 Sat by Pulse 99 99 100 Oximetry 05/03/20 05/03/20 05/03/20 21:58 22:03 22:08 Temperature Pulse Rate 74 70 77 Respiratory Rate Blood Pressure Blood Pressure [Left] O2 Sat by Pulse 98 99 100 Oximetry 05/03/20 05/03/20 05/03/20 22:13 22:18 22:23 Temperature Pulse Rate 76 73 79 Respiratory Rate Blood Pressure Blood Pressure [Left] O2 Sat by Pulse 100 100 98 Oximetry 05/03/20 05/03/20 05/03/20 22:28 22:33 22:38 Temperature Pulse Rate 73 76 77 Respiratory Rate Blood Pressure Blood Pressure [Left] O2 Sat by Pulse 99 99 99 Oximetry 05/03/20 05/03/20 05/03/20 22:43 22:48 22:53 Temperature Pulse Rate 80 76 72 Respiratory Rate Blood Pressure Blood Pressure [Left] O2 Sat by Pulse 99 100 100 Oximetry 05/03/20 05/03/20 05/03/20 22:58 23:03 23:08 Temperature Pulse Rate 78 73 74 Respiratory Rate Blood Pressure Blood Pressure [Left] O2 Sat by Pulse 99 98 98 Oximetry 05/03/20 05/03/20 05/03/20 23:13 23:18 23:23 Temperature Pulse Rate 78 83 84 Respiratory Rate Blood Pressure Blood Pressure [Left] O2 Sat by Pulse 99 100 100 Oximetry 05/03/20 05/03/20 05/03/20 23:28 23:33 23:38 Temperature Pulse Rate 85 84 83 Respiratory Rate Blood Pressure Blood Pressure [Left] O2 Sat by Pulse 99 100 100 Oximetry 05/03/20 05/03/20 05/03/20 23:43 23:48 23:53 Temperature Pulse Rate 72 74 73 Respiratory Rate Blood Pressure Blood Pressure [Left] O2 Sat by Pulse 100 99 99 Oximetry 05/03/20 05/04/20 05/04/20 23:58 00:03 00:08 Temperature Pulse Rate 80 80 82 Respiratory Rate Blood Pressure Blood Pressure [Left] O2 Sat by Pulse 99 99 99 Oximetry 05/04/20 05/04/20 05/04/20 00:13 00:17 00:18 Temperature 99.9 F H Pulse Rate 90 82 Respiratory Rate Blood Pressure Blood Pressure [Left] O2 Sat by Pulse 99 99 Oximetry 05/04/20 05/04/20 05/04/20 00:23 00:28 00:33 Temperature Pulse Rate 89 87 83 Respiratory Rate Blood Pressure Blood Pressure [Left] O2 Sat by Pulse 100 100 99 Oximetry 05/04/20 05/04/20 05/04/20 00:38 00:43 00:48 Temperature Pulse Rate 88 94 H 90 Respiratory Rate Blood Pressure Blood Pressure [Left] O2 Sat by Pulse 100 99 100 Oximetry 05/04/20 05/04/20 05/04/20 00:53 00:58 01:03 Temperature Pulse Rate 87 89 89 Respiratory Rate Blood Pressure Blood Pressure [Left] O2 Sat by Pulse 98 100 98 Oximetry 05/04/20 05/04/20 05/04/20 01:08 01:13 01:18 Temperature Pulse Rate 90 91 H 85 Respiratory Rate Blood Pressure Blood Pressure [Left] O2 Sat by Pulse 99 99 99 Oximetry 12/09/1805/04/20 05/04/20 01:23 01:28 01:33 Temperature Pulse Rate 99 H 96 H 91 H Respiratory Rate Blood Pressure Blood Pressure [Left] O2 Sat by Pulse 100 99 99 Oximetry 05/04/20 05/04/20 05/04/20 01:38 01:43 01:49 Temperature Pulse Rate 94 H 93 H 91 H Respiratory Rate Blood Pressure Blood Pressure [Left] O2 Sat by Pulse 100 99 99 Oximetry 05/04/20 05/04/20 05/04/20 01:54 01:59 02:04 Temperature Pulse Rate 90 81 87 Respiratory Rate Blood Pressure Blood Pressure [Left] O2 Sat by Pulse 98 99 100 Oximetry 05/04/20 05/04/20 05/04/20 02:09 02:14 02:19 Temperature Pulse Rate 93 H 87 85 Respiratory Rate Blood Pressure Blood Pressure [Left] O2 Sat by Pulse 95 98 99 Oximetry 05/04/20 05/04/20 05/04/20 02:24 02:29 02:34 Temperature Pulse Rate 88 89 96 H Respiratory Rate Blood Pressure Blood Pressure [Left] O2 Sat by Pulse 98 97 92 Oximetry 05/04/20 05/04/20 05/04/20 02:37 02:39 02:44 Temperature Pulse Rate 81 88 87 Respiratory Rate Blood Pressure Blood Pressure [Left] O2 Sat by Pulse 94 97 98 Oximetry 05/04/20 05/04/20 05/04/20 02:49 02:54 02:55 Temperature Pulse Rate 89 85 87 Respiratory Rate Blood Pressure Blood Pressure [Left] O2 Sat by Pulse 95 94 99 Oximetry 05/04/20 05/04/20 05/04/20 03:00 03:05 03:08 Temperature Pulse Rate 91 H 94 H 85 Respiratory Rate Blood Pressure Blood Pressure [Left] O2 Sat by Pulse 97 95 94 Oximetry 05/04/20 05/04/20 05/04/20 03:10 03:14 03:15 Temperature Pulse Rate 88 95 H 95 H Respiratory Rate Blood Pressure Blood Pressure [Left] O2 Sat by Pulse 93 90 94 Oximetry 05/04/20 05/04/20 05/04/20 03:20 03:25 03:30 Temperature Pulse Rate 90 90 101 H Respiratory Rate Blood Pressure Blood Pressure [Left] O2 Sat by Pulse 98 98 99 Oximetry 05/04/20 05/04/20 05/04/20 03:31 03:35 03:40 Temperature Pulse Rate 98 H 100 H 101 H Respiratory Rate Blood Pressure 156/81 Blood Pressure [Left] O2 Sat by Pulse 93 100 99 Oximetry 05/04/20 05/04/20 05/04/20 03:41 03:45 03:50 Temperature 98.9 F Pulse Rate 97 H 82 Respiratory Rate Blood Pressure Blood Pressure [Left] O2 Sat by Pulse 98 99 Oximetry 05/04/20 05/04/20 05/04/20 03:55 04:00 04:05 Temperature Pulse Rate 91 H 88 89 Respiratory Rate Blood Pressure Blood Pressure [Left] O2 Sat by Pulse 98 99 99 Oximetry 05/04/20 05/04/20 05/04/20 04:10 04:12 04:15 Temperature Pulse Rate 91 H 91 H 95 H Respiratory Rate Blood Pressure 158/82 Blood Pressure [Left] O2 Sat by Pulse 97 99 Oximetry 05/04/20 05/04/20 05/04/20 04:20 04:25 04:30 Temperature Pulse Rate 94 H 81 84 Respiratory Rate Blood Pressure Blood Pressure [Left] O2 Sat by Pulse 97 99 98 Oximetry 05/04/20 05/04/20 05/04/20 04:35 04:40 04:42 Temperature Pulse Rate 84 94 H 88 Respiratory Rate Blood Pressure 163/85 Blood Pressure [Left] O2 Sat by Pulse 99 98 Oximetry 05/04/20 05/04/20 05/04/20 04:43 04:45 04:50 Temperature Pulse Rate 87 86 76 Respiratory Rate Blood Pressure Blood Pressure [Left] O2 Sat by Pulse 91 99 99 Oximetry 05/04/20 05/04/20 05/04/20 04:55 05:00 05:05 Temperature Pulse Rate 75 87 92 H Respiratory Rate Blood Pressure Blood Pressure [Left] O2 Sat by Pulse 99 98 98 Oximetry 05/04/20 05/04/20 05/04/20 05:10 05:11 05:15 Temperature Pulse Rate 92 H 80 89 Respiratory Rate Blood Pressure 152/67 Blood Pressure [Left] O2 Sat by Pulse 99 98 Oximetry 05/04/20 05/04/20 05/04/20 05:20 05:25 05:30 Temperature Pulse Rate 91 H 87 92 H Respiratory Rate Blood Pressure 169/83 Blood Pressure [Left] O2 Sat by Pulse 97 93 98 Oximetry 1205/04/20 05/04/20 05:35 05:40 05:42 Temperature Pulse Rate 90 90 86 Respiratory Rate Blood Pressure 158/79 158/91 Blood Pressure [Left] O2 Sat by Pulse 98 99 Oximetry 05/04/20 05/04/20 05/04/20 05:45 05:50 05:55 Temperature Pulse Rate 87 101 H 90 Respiratory Rate Blood Pressure Blood Pressure [Left] O2 Sat by Pulse 98 96 97 Oximetry 05/04/20 05/04/20 05/04/20 06:00 06:05 06:10 Temperature Pulse Rate 82 87 84 Respiratory Rate Blood Pressure Blood Pressure [Left] O2 Sat by Pulse 98 96 97 Oximetry 05/04/20 05/04/20 05/04/20 06:11 06:15 06:20 Temperature 98.7 F Pulse Rate 83 80 86 Respiratory Rate Blood Pressure 182/91 Blood Pressure [Left] O2 Sat by Pulse 91 97 97 Oximetry 05/04/20 05/04/20 05/04/20 06:25 06:30 06:35 Temperature Pulse Rate 84 84 96 H Respiratory Rate Blood Pressure 170/84 Blood Pressure [Left] O2 Sat by Pulse 97 97 97 Oximetry 05/04/20 05/04/20 05/04/20 06:40 06:41 06:45 Temperature Pulse Rate 74 80 87 Respiratory Rate Blood Pressure 154/76 Blood Pressure [Left] O2 Sat by Pulse 99 99 Oximetry 05/04/20 05/04/20 05/04/20 06:46 06:50 06:55 Temperature Pulse Rate 83 93 H 89 Respiratory Rate Blood Pressure 149/74 Blood Pressure [Left] O2 Sat by Pulse 97 100 Oximetry 05/04/20 05/04/20 05/04/20 07:00 07:05 07:10 Temperature Pulse Rate 87 97 H 91 H Respiratory Rate Blood Pressure Blood Pressure [Left] O2 Sat by Pulse 99 98 98 Oximetry 05/04/20 05/04/20 05/04/20 07:11 07:13 07:15 Temperature 98.6 F Pulse Rate 95 H 93 H 88 Respiratory 20 Rate Blood Pressure 154/83 Blood Pressure 154/83 [Left] O2 Sat by Pulse 98 99 Oximetry 05/04/20 05/04/20 05/04/20 07:20 07:25 07:30 Temperature Pulse Rate 96 H 97 H 95 H Respiratory Rate Blood Pressure Blood Pressure [Left] O2 Sat by Pulse 98 98 98 Oximetry 05/04/20 05/04/20 05/04/20 07:35 07:40 07:42 Temperature Pulse Rate 96 H 95 H 93 H Respiratory Rate Blood Pressure 150/73 Blood Pressure [Left] O2 Sat by Pulse 96 98 Oximetry 05/04/20 05/04/20 05/04/20 07:45 07:50 07:55 Temperature Pulse Rate 89 90 101 H Respiratory Rate Blood Pressure Blood Pressure [Left] O2 Sat by Pulse 99 97 98 Oximetry 05/04/20 05/04/20 05/04/20 08:00 08:05 08:10 Temperature Pulse Rate 95 H 99 H 98 H Respiratory Rate Blood Pressure Blood Pressure [Left] O2 Sat by Pulse 98 99 99 Oximetry 05/04/20 05/04/20 05/04/20 08:13 08:15 08:20 Temperature Pulse Rate 102 H 98 H 100 H Respiratory Rate Blood Pressure 129/70 Blood Pressure [Left] O2 Sat by Pulse 98 99 Oximetry 05/04/20 05/04/20 05/04/20 08:25 08:30 08:35 Temperature Pulse Rate 100 H 98 H 97 H Respiratory Rate Blood Pressure Blood Pressure [Left] O2 Sat by Pulse 98 99 98 Oximetry 05/04/20 05/04/20 05/04/20 08:40 08:42 08:45 Temperature Pulse Rate 98 H 93 H 103 H Respiratory Rate Blood Pressure 151/72 Blood Pressure [Left] O2 Sat by Pulse 99 100 Oximetry 05/04/20 05/04/20 05/04/20 08:50 08:55 08:58 Temperature 99.4 F Pulse Rate 101 H 98 H Respiratory Rate Blood Pressure Blood Pressure [Left] O2 Sat by Pulse 97 98 Oximetry 05/04/20 05/04/20 05/04/20 09:00 09:05 09:10 Temperature Pulse Rate 97 H 99 H 102 H Respiratory Rate Blood Pressure Blood Pressure [Left] O2 Sat by Pulse 98 97 97 Oximetry 05/04/20 05/04/20 05/04/20 09:12 09:15 09:20 Temperature Pulse Rate 100 H 105 H 103 H Respiratory Rate Blood Pressure 147/71 Blood Pressure [Left] O2 Sat by Pulse 97 99 Oximetry 05/04/20 05/04/20 09:25 09:30 Temperature Pulse Rate 105 H 100 H Respiratory Rate Blood Pressure Blood Pressure [Left] O2 Sat by Pulse 99 98 Oximetry - Exam Cardiovascular: Regular rate Lungs: Normal air movement FHR: category 1 Uterine Contraction Monitor Mode: External Cervical Dilatation: 8 (vertex) Cervical Effacement Percentage: 80 station: -1 Uterine Contraction Frequency (min): 2-3 Uterine Contraction Pattern: Regular Uterine Contraction Intensity: Strong/Firm Deep Tendon Reflex Grade: Normal +2 - Labs Labs: Abnormal Labs 05/01/20 05/04/20 05/04/20 21:59 06:12 06:12 WBC 23.4 H RBC 3.19 L 3.24 L MCH 33 H MCHC 35 H Lactate Dehydrogenase 252 H Laboratory Results - last 24 hr 05/02/20 05/04/20 05/04/20 Unknown 06:12 06:12 WBC 23.4 H RBC 3.24 L Hgb 10.5 Hct 31.2 MCV 96 MCH 32 MCHC 34 RDW 13.9 Plt Count 239 Creatinine 1.0 Estimated GFR > 60 Uric Acid 5.9 AST 23 ALT 12 Lactate Dehydrogenase 252 H Coronavirus (PCR) Negative
[2020-05-04] MEDS: OXYTOCIN DRIP 30 UNITS/500 ML BAG IV SCH (17:51)
--- NOTE | 2020-05-04 17:58 | Event Note ---
Date: 05/04/20 Assumed care of patient at 17:48. Patient is receiving Pitocin for augmentation of labor. SVE 7.5/95/-2. No lesions noted on careful exam under bright light. Spoke with Dr. Ospina by phone and Dr. Ospina states he is aware of patient's slow progress in labor. Informed Dr. Ospina of elevated WBC and intermittently elevated blood pressures. Will order PreE labs. Dr. Ospina states OK to allow patient to labor. No other orders received.
[2020-05-04] MEDS ORDERED: hydrALAZINE 20 MG/1 ML INJ IV PRN (19:27)
[2020-05-04 19:54] LABS: Bilirubin,Urine NEG (Negative); Blood,Urine LG (Negative); Color,Urine Yellow (Yellow); Mucus,Urine 1+ /HPF; Urobilinogen,Urine < 2.0 mg/dL (<2.0)
[2020-05-04 19:55] LABS: RBC,Urine > 182.0 /HPF (0.0-6.0); WBC,Urine > 182.0 /HPF (0.0-6.0)
--- NOTE | 2020-05-04 20:03 | Event Note ---
Date: 05/04/20 Urinalysis shows 2+ protein. Pt. reports mild headache. Several BPs in severe range. Magnesium sulfate ordered. IV hydralazine ordered. Consulted with Dr. Ospina re: patient and informed him of the above; MD in agreement with management plan. Informed patient and S.O. of elevated blood pressures and need to start magnesium sulfate and possible side effects.
[2020-05-04] MEDS: MAGNESIUM SULFATE 40GM/1000ML 40 GM/1,000 ML BAG IV SCH (20:21)
[2020-05-04] MEDS ORDERED: MAGNESIUM SULFATE 4 GM/100 ML BAG IV ONE (20:28)
--- NOTE | 2020-05-05 01:08 | Event Note ---
Date: 05/05/20 SVE: cervix unchanged since last exam. Still /-. Cat. 1 FHR tracing. Maternal pulse between 110-120 bpm. No maternal fever. Patient is receiving Ampicillin. BPs stable. Patient is receiving magnesium sulfate. Called Dr. Ospina and informed him of no cervical change, maternal tachycardia, slow labor progress, and prolonged ROM. Dr. Ospina states to continue to allow patient to labor and to recheck at 4:00 AM. No other orders received.
[2020-05-05] MEDS: fentaNYL-BUPIV 2 MCG/ML-0.125% 200 MCG/100 ML BAG EPIDURAL SCH (03:28)
[2020-05-05] MEDS: AMPICILLIN/NS 1 GM/50 ML 1 GM/50 ML BAG IV SCH (03:28)
--- NOTE | 2020-05-05 04:54 | Event Note ---
Date: 05/05/20 SVE /-1 to 0. Fetus is OP position. Called Dr. Ospina and informed him of no cervical change in spite of Pitocin. Dr. Ospina states he will perform a section. Informed patient and S.O. Pitocin discontinued.
[2020-05-05] MEDS ORDERED: ceFAZolin/Water 2 GM/20 ML 2 GM/20 ML SYRINGE IV ONE (07:44)
[2020-05-05] MEDS ORDERED: BICITRA ORAL LIQD 30ML PO ONE (07:49)
[2020-05-05] MEDS ORDERED: METOCLOPRAMIDE 10 MG/2 ML INJ IV ONE (07:49)
[2020-05-05] MEDS ORDERED: ceFAZolin/STERILE WATER 2 GM/20 ML SYRINGE IV NR (08:00)
[2020-05-05] MEDS ORDERED: FAMOTIDINE 20 MG/2 ML INJ IV NR (08:00)
[2020-05-05] MEDS ORDERED: KETOROLAC 30 MG/1 ML INJ ONE ×2 (08:30→10:27)
[2020-05-05] MEDS ORDERED: ONDANSETRON 4 MG/2 ML INJ ONE ×2 (08:30→10:26)
[2020-05-05] MEDS ORDERED: LIDOCAINE MPF (2%) 20 MG/1 ML VIAL 5 ML ONE (08:31)
[2020-05-05] MEDS ORDERED: ONDANSETRON 4 MG/2 ML INJ IV ONE (08:40)
[2020-05-05] MEDS ORDERED: CARBOPROST TROMETHAMINE 250 MCG/1 ML INJ IM ONE ×2 (08:44→09:15)
[2020-05-05] MEDS ORDERED: miSOPROStol 200 MCG TAB PR ONE ×2 (08:44→09:45)
[2020-05-05] MEDS ORDERED: OXYTOCIN 10 UNIT/1 ML INJ IM ONE (09:30)
[2020-05-05] MEDS ORDERED: KETOROLAC 30 MG/1 ML INJ IV ONE (10:00)
--- NOTE | 2020-05-05 10:23 | Procedure Note ---
OB Delivery Note - Delivery Date of Delivery: 05/05/20 Surgeon: FARHEEN FLOYD JR Estimated blood loss: 1000cc - Section Preop diagnosis: arrest of dilation, other (severe preeclampsia, prolonged rupture of membranes) Postop diagnosis: same section procedure: section, primary low transverse Disposition: PACU Complications: none Narrative: Indication: 29-year-old G1 at 41 weeks 5 days otherwise uncomplicated undergoing postdates induction of labor, failed for failure to progress with subsequent plan for primary . During labor, diagnosed with severe preeclampsia and thin meconium that became thick prior to surgical management. Findings: Normal uterus, tubes and ovaries. Mod-thick meconium stained fluid. No nuchal cord. Significant uterine atony improved with IV Pitocin x1, Hemabate x1, rectal misoprostol 1000 mcg x1 Delivery of male at 0922 Height 20 inches Weight 3702 g Apgars 7/9 EBL 1000 cc IVF 2000 cc Urine 300 cc Procedure: Patient was taken to the operating room prepped and draped in the usual sterile fashion. Pfannenstiel skin incision was made and carried down to the underlying fascia. Fascia was incised and the incision was distended bilaterally. Rectus fascia was dissected off the rectus muscle superiorly and inferiorly. Peritoneum was identified and entered. Peritoneal incision extended superiorly and inferiorly. The bladder was visualized. The bladder blade was placed. Uterine hysterotomy incision was made and extended bilaterally. The baby was delivered in the typical vertex fashion. Baby was bulb suction at delivery. The cord was cut and clamped and handed off to the team. The placenta was delivered spontaneously. The uterus was exteriorized and cleared of all clots and debris. Uterine incision was closed with a 0 Vicryl in a running locked fashion. Good hemostasis was noted after 3 series of [id number] sutures. Significant uterine atony was improved with IV Pitocin x10 mg, Hemabate x1, rectal miso 1000 mcg x 1. The urine was noted to be clear. Uterus, tubes, and ovaries were returned to the abdominal cavity. Bilateral gutters were cleared and the abdomen and pelvis were irrigated. Good hemostasis noted after hemoblast was applied to the uterine repair base. A ttention was directed towards the rectus fascia which was reapproximated with 0 PDS in a running fashion. The subcutaneous tissue was irrigated and reapproximated with 2-0 Vicryl in a running fashion. Skin was closed with a 4-0 Vicryl in a subcuticular fashion. The procedure was completed and the patient tolerated the procedure well. All instruments and lap counts were correct x2. - Infant A at 1 minute: 7 at 5 minutes: 9 Gender: Male
[2020-05-05] MEDS ORDERED: dexAMETHasone 20 MG/5 ML VIAL ONE (10:26)
[2020-05-05] MEDS ORDERED: PHENYLEPHRINE/NS 1,000 MCG/10 ML SYRINGE (OR USE) IV ONE (10:26)
[2020-05-05] MEDS ORDERED: BUPIVACAINE/PF (0.5%) 5 MG/1 ML 30 ML VIAL INFILTRATI ONE (10:26)
[2020-05-05] MEDS ORDERED: LACTATED RINGERS 1,000 ML ONE (10:27)
[2020-05-05] MEDS ORDERED: HYDROCORTISONE 25 MG RECTAL SUPP PR PRN (10:28)
[2020-05-05] MEDS ORDERED: PROMETHAZINE 25 MG RECT SUPP PR PRN (10:28)
[2020-05-05] MEDS ORDERED: WITCH HAZEL/ GLYCERIN PAD TP PRN (10:28)
[2020-05-05] MEDS ORDERED: LANOLIN/ZINC/DIMETHICONE (LANSINOH) 7 GM TP PRN (10:28)
[2020-05-05] MEDS ORDERED: NALOXONE 0.4 MG/1 ML INJ IV PRN (10:28)
[2020-05-05] MEDS ORDERED: MORPHINE 4 MG/1 ML INJ IV PRN (10:28)
[2020-05-05] MEDS ORDERED: ONDANSETRON 4 MG/2 ML INJ IV PRN (10:28)
[2020-05-05] MEDS ORDERED: SENNOSIDES 8.6 MG TAB PO PRN (10:28)
[2020-05-05] MEDS ORDERED: SIMETHICONE 80 MG CHEW TAB PO PRN (10:28)
[2020-05-05] MEDS ORDERED: MAGNESIUM HYDROXIDE (MOM) ORAL LIQD UDC PO PRN (10:28)
[2020-05-05] MEDS ORDERED: OXYTOCIN DRIP 30 UNITS/500 ML BAG IV SCH (11:00)
--- NOTE | 2020-05-05 11:38 | Post Anesthesia Evaluation ---
- Post Anesthesia Evaluation Patient Participated: Yes Airway Patent: Yes Stable Respiratory Function: Yes Nausea/Vomiting: No Temp > 96.8F: Yes Pain Manageable: Yes Adequeate Hydration: Yes Anesthesia Complications: No Block Receding Appropriately: Yes
--- NOTE | 2020-05-05 11:39 | Progress Note ---
Regional Anesthesia Block - Regional Anesthesia Block Start Time: 10:30 Stop Time: 10:35 Performed By:: JIAN ARMENTA Procedure: U/S guided bilateral tap block performed for post-operative pain requested by Dr. Ospina. H&P & labs reviewed. Procedure explained, questions answered, consent obtained. Patient in the supine position with ekg, blood pressure cuff and pulse ox on and working in PACU. Timeout performed immediately before start of procedure. Probe placed in the mid-axillary line and the external oblique, internal oblique, and transverse abdominus muscles identified. Skin was cleansed with 0.5% Chlorahexadine and allowed to dry. A 4" 20 G Beauchamp echogenic needle was advanced in plane until the tip was in the fascial plane between the internal oblique and the transverse abdominus. After negative aspiration 35 ml/side of [30 ml 0.5% Bupivacaine], [50 mcg dexmedetomidine], [10 mg dexamethasone], and [40 ml sterile saline] was injected in 5 ml increments with negative aspiration in between. Patient tolerated procedure well. Levi MOY
[2020-05-05] MEDS: KETOROLAC 30 MG/1 ML INJ IV SCH ×3 (17:24→22:41)
[2020-05-05] MEDS: MAGNESIUM SULFATE 40GM/1000ML 40 GM/1,000 ML BAG IV SCH (19:20)
[2020-05-05] MEDS: LACTATED RINGERS 1,000 ML IV SCH (21:07)
[2020-05-06 00:37] LABS: Hematocrit 25.7 % (30.3-42.9); Hemoglobin 8.7 gm/dl (10.1-14.3)
--- NOTE | 2020-05-06 08:30 | Progress Note ---
Assessment and Plan A: /postop day 1 S/P primary LTCS. Severe preeclampsia. BPs stable. Anemia. P: Magnesium stopped due to rising mag levels. Supplement with iron. Subjective - Subjective Date of service: 05/06/20 Principal diagnosis: /postop day 1 S/P primary LTCS; preeclampsia Patient reports: appetite normal, flatus, no nauseated [place]: doing well Objective - Vital Signs Latest vital signs: Vital Signs Temp Pulse Resp BP BP Pulse Ox 05/06/20 08:20 90 98 05/06/20 08:15 93 H 99 05/06/20 08:10 79 97 05/06/20 08:05 76 97 05/06/20 08:04 75 131/69 05/06/20 08:00 87 97 05/06/20 07:55 76 97 05/06/20 07:50 82 97 05/06/20 07:45 80 98 05/06/20 07:40 78 98 05/06/20 07:35 84 98 05/06/20 07:34 84 138/80 05/06/20 07:30 86 98 05/06/20 07:25 80 97 05/06/20 07:20 91 H 98 05/06/20 07:15 87 97 05/06/20 07:10 83 99 05/06/20 07:05 89 98 05/06/20 07:04 81 137/85 05/06/20 07:00 88 99 05/06/20 06:55 75 97 05/06/20 06:50 78 97 05/06/20 06:49 76 94 05/06/20 06:45 72 96 05/06/20 06:40 71 96 05/06/20 06:35 77 97 05/06/20 06:34 74 118/72 05/06/20 06:30 73 97 05/06/20 06:25 76 98 05/06/20 06:20 77 97 05/06/20 06:15 83 97 05/06/20 06:10 88 97 05/06/20 06:05 78 97 05/06/20 06:04 75 127/75 05/06/20 06:00 80 98 05/06/20 05:55 90 97 05/06/20 05:51 83 93 05/06/20 05:50 75 97 05/06/20 05:45 88 98 05/06/20 05:40 82 96 05/06/20 05:39 74 94 05/06/20 05:35 79 97 05/06/20 05:34 75 124/82 05/06/20 05:30 82 96 05/06/20 05:25 78 97 05/06/20 05:20 84 97 05/06/20 05:15 77 97 05/06/20 05:10 75 96 05/06/20 05:05 76 96 05/06/20 05:04 75 125/74 05/06/20 05:00 75 96 05/06/20 04:55 78 97 05/06/20 04:50 85 98 05/06/20 04:45 77 98 05/06/20 04:40 78 98 05/06/20 04:35 82 98 05/06/20 04:34 74 131/71 05/06/20 04:30 76 98 05/06/20 04:25 90 98 05/06/20 04:20 80 98 05/06/20 04:15 78 97 05/06/20 04:10 76 97 05/06/20 04:05 98 H 97 05/06/20 04:04 81 126/74 05/06/20 04:00 96 H 98 05/06/20 03:55 102 H 97 05/06/20 03:50 90 97 05/06/20 03:45 91 H 97 05/06/20 03:40 83 97 05/06/20 03:35 80 97 05/06/20 03:34 80 134/80 05/06/20 03:30 89 97 05/06/20 03:25 92 H 97 05/06/20 03:20 78 97 05/06/20 03:15 102 H 97 05/06/20 03:10 88 96 05/06/20 03:05 86 96 05/06/20 03:04 80 129/81 05/06/20 03:00 81 97 05/06/20 02:55 92 H 97 05/06/20 02:50 92 H 98 05/06/20 02:45 94 H 98 05/06/20 02:40 89 98 06 02:35 93 H 98 05/06/20 02:34 78 131/80 05/06/20 02:30 82 98 05/06/20 02:25 70 98 12/06/20 02:20 72 98 05/06/20 02:15 75 98 05/06/20 02:10 81 98 05/06/20 02:05 81 98 05/06/20 02:04 86 129/86 05/06/20 02:00 81 98 05/06/20 01:55 75 97 05/06/20 01:50 83 98 05/06/20 01:45 75 97 05/06/20 01:40 78 96 05/06/20 01:35 85 97 05/06/20 01:34 79 131/75 05/06/20 01:30 92 H 97 05/06/20 01:25 99 H 97 05/06/20 01:20 91 H 97 05/06/20 01:18 85 94 05/06/20 01:15 82 96 05/06/20 01:10 82 97 05/06/20 01:05 81 97 05/06/20 01:04 76 132/70 05/06/20 01:00 82 96 05/06/20 00:55 78 97 05/06/20 00:50 79 96 05/06/20 00:45 85 96 05/06/20 00:40 85 96 05/06/20 00:35 83 96 05/06/20 00:34 91 H 139/71 05/06/20 00:30 85 96 05/06/20 00:25 80 96 05/06/20 00:20 93 H 97 05/06/20 00:15 84 96 05/06/20 00:10 83 97 05/06/20 00:05 86 96 05/06/20 00:04 85 129/73 05/06/20 00:00 83 96 05/05/20 23:55 98 H 98 05/05/20 23:50 86 96 05/05/20 23:45 85 96 05/05/20 23:40 85 95 05/05/20 23:35 82 97 05/05/20 23:34 89 129/75 05/05/20 23:30 85 97 05/05/20 23:25 90 98 05 23:20 95 H 98 05/05/20 23:15 84 98 05/05/20 23:10 85 98 05/05/20 23:05 89 99 12/05/20 23:04 90 135/80 12/05/20 23:00 91 H 98 12/05/20 22:55 96 H 98 12/05/20 22:50 103 H 98 12/05/20 22:45 107 H 98 12/05/20 22:40 102 H 98 12/05/20 22:35 97 H 98 12/05/20 22:34 98 H 136/86 1205/20 22:30 113 H 98 12/05/20 22:25 111 H 98 12/05/20 22:20 111 H 98 12/05/20 22:15 108 H 97 12/05/20 22:10 94 H 98 12/05/20 22:05 99 H 98 12/05/20 22:04 89 127/74 1205/20 22:00 91 H 96 12/05/20 21:55 88 98 12/05/20 21:50 88 97 12/05/20 21:45 104 H 98 12/05/20 21:40 89 97 12/05/20 21:35 87 97 1205/20 21:34 83 131/72 12/05/20 21:30 94 H 98 12/05/20 21:25 99 H 98 12/05/20 21:20 95 H 97 12/05/20 21:15 92 H 97 12/05/20 21:10 90 97 12/05/20 21:05 95 H 98 12/05/20 21:04 96 H 137/83 12/05/20 21:00 111 H 98 12/05/20 20:55 100 H 98 12/05/20 20:50 100 H 99 12/05/20 20:45 104 H 98 12/05/20 20:40 98 H 99 12/05/20 20:35 103 H 98 12/05/20 20:34 99 H 141/85 12/05/20 20:30 104 H 98 12/05/20 20:25 97 H 99 12/05/20 20:20 103 H 99 12/05/20 20:15 95 H 98 12/05/20 20:10 100 H 98 12/05/20 20:05 107 H 99 12/05/20 20:04 106 H 146/85 12/05/20 20:00 113 H 99 12/05/20 19:55 106 H 97 12/05/20 19:50 107 H 99 1205/20 19:45 105 H 99 12/05/20 19:40 111 H 99 1205/20 19:35 103 H 99 120520 19:34 102 H 145/82 1205/20 19:30 104 H 100 1205/20 19:29 101 H 148/83 120520 19:28 99.1 F 100 H 18 148/83 100 0520 19:25 92 H 99 0520 19:20 101 H 99 1205/20 19:15 106 H 99 0520 19:10 104 H 99 05/20 19:05 103 H 99 1205 19:04 99 H 140/89 05/05/20 19:00 109 H 100 120520 18:55 103 H 100 20 18:50 111 H 99 1205/20 18:45 104 H 99 0520 18:40 103 H 99 0520 18:35 111 H 99 05 18:34 106 H 141/90 0520 18:30 105 H 99 05/20 18:25 109 H 99 05/20 18:20 107 H 100 0520 18:15 99 H 99 05/20 18:10 98 H 99 05/20 18:05 96 H 99 0520 18:04 94 H 156/80 20 18:00 107 H 99 0520 17:55 105 H 99 0520 17:50 101 H 98 05/20 17:45 97 H 99 05/20 17:40 102 H 100 0520 17:35 114 H 98 12/05/20 17:34 99 H 139/84 05/20 17:30 105 H 98 12/05/20 17:25 102 H 99 1205/20 17:20 102 H 99 1205/20 17:15 98 H 98 1205/20 17:10 108 H 99 12/05/20 17:05 86 98 12/05/20 17:04 90 136/83 0520 17:00 96 H 99 05/20 16:55 98 H 99 05/20 16:50 107 H 99 1205/20 16:45 107 H 100 120520 16:40 109 H 98 120520 16:35 107 H 98 05/05/20 16:34 100 H 148/93 20 16:30 104 H 98 05/05/20 16:25 106 H 99 120520 16:20 107 H 99 05/05/20 16:15 107 H 99 05 16:10 109 H 99 05 16:05 114 H 99 05 16:04 100 H 153/93 05/05/20 16:00 99.2 F 103 H 18 99 05/05/20 15:55 108 H 97 05/05/20 15:50 109 H 98 05 15:45 103 H 98 05/05/20 15:40 99 H 98 05 15:35 99 H 99 05 15:34 106 H 140/93 05/05/20 15:30 106 H 98 05/05/20 15:25 101 H 99 05 15:20 96 H 100 05 15:15 98 H 98 05 15:10 108 H 100 05 15:05 114 H 98 05 15:04 79 148/89 05/05/20 15:00 79 97 05 14:55 80 99 05 14:50 102 H 99 05/05/20 14:45 86 99 05 14:40 87 99 05 14:35 96 H 100 05 14:34 101 H 160/85 05/05/20 14:30 106 H 100 05 14:25 105 H 99 05 14:20 105 H 99 05 14:15 89 100 05 14:10 79 99 05/05/20 14:05 91 H 100 05 14:04 88 143/87 05/05/20 14:00 84 99 05 13:55 88 99 05 13:50 96 H 99 05 13:45 95 H 100 05/05/20 13:40 87 100 05/05/20 13:35 88 153/70 100 05/05/20 13:30 71 99 05/05/20 13:25 77 98 05/05/20 13:20 83 99 05/05/20 13:15 89 99 05/05/20 13:10 88 99 05/05/20 13:05 82 100 05/05/20 13:04 76 155/81 05/05/20 13:00 86 99 05/05/20 12:55 83 100 05/05/20 12:51 78 155/83 05/05/20 12:50 90 99 05/05/20 12:48 79 178/69 05/05/20 11:32 97.9 F 05/05/20 11:25 79 18 106/63 99 05/05/20 11:10 82 18 115/61 99 05/05/20 10:55 84 18 99/68 97 05/05/20 10:40 73 18 116/68 99 05/05/20 10:35 86 18 111/57 99 05/05/20 10:30 97.5 F L 80 18 102/54 99 Intake and Output 05/05/20 05/06/20 05/06/20 23:59 07:59 15:59 Intake Total 1000 Output Total 5200 2750 Balance -4200 -2750 Intake: IV 1000 MAGNESIUM SULFATE 40GM/ 1000 1000ML 40 gm In 1,000 ml @ 2 GM/HR 50 mls/hr IV DIRECT ADRIENNE Rx#:[id number] Output: Urine 5200 2750 Indwelling Catheter 5200 2750 Other: Total, Output Amount 700 500 - Exam Narrative Exam: Good urinary output. Abdomen: Present: soft. Absent: tenderness, guarding, rigidity Uterus: Present: firm Incision: Present: normal, dry, intact - Labs Labs: Abnormal lab results 05/05/20 05/05/20 05/05/20 Range/Units 08:02 14:19 19:17 Hgb (10.1-14.3) gm/dl Hct (30.3-42.9) % Magnesium 8.40 H 6.90 H 7.40 H (1.7-2.3) mg/dL 05/05/20 05/06/20 Range/Units 23:22 04:20 Hgb 8.7 L (10.1-14.3) gm/dl Hct 25.7 L (30.3-42.9) % Magnesium 8.40 H (1.7-2.3) mg/dL
[2020-05-06] MEDS: IBUPROFEN 800 MG TAB PO PRN (08:34)
[2020-05-06] MEDS: oxyCODONE /ACETAMINOPHEN 5-325MG TAB PO PRN ×2 (08:52→19:56)
[2020-05-06] MEDS ORDERED: FERROUS SULFATE 325 MG TAB PO SCH (22:00)
[2020-05-07] MEDS: IBUPROFEN 800 MG TAB PO PRN (05:29)
[2020-05-07] MEDS: oxyCODONE /ACETAMINOPHEN 5-325MG TAB PO PRN (10:31)
--- NOTE | 2020-05-07 11:37 | Progress Note ---
Assessment and Plan A: POD #2 Gestational HTN P: Follow Routine PostOP Orders D/C home today per patient request RTO in one week Subjective - Subjective Date of service: 05/07/20 Principal diagnosis: /postop day 1 S/P primary LTCS; preeclampsia Patient reports: appetite normal, voiding normally, pain well controlled, flatus, bowel movement, ambulating normally, other (Denies HAs, visual changes, N&V) [place]: doing well, bottle feeding (and ) Objective - Vital Signs Latest vital signs: Vital Signs Temp Pulse Resp BP BP Pulse Ox 05/07/20 08:15 98.3 F 66 20 137/77 98 05/07/20 05:10 98.0 F 64 20 117/64 96 05/07/20 00:03 98.2 F 77 20 117/72 97 05/06/20 20:37 98.3 F 81 20 115/72 98 05/06/20 15:30 97.9 F 73 20 139/78 Intake and Output 05/06/20 05/07/20 05/07/20 22:59 06:59 14:59 Intake Total 320 120 Output Total 200 Balance 320 -200 120 Intake: Oral 320 120 Output: Urine 200 Void 200 Other: Total, Intake Amount 320 120 Total, Output Amount 200 # Voids Void 1 1 - Exam Breasts: Present: normal Cardiovascular: Present: Regular rate Lungs: Present: Clear to auscultation, Normal air movement Abdomen: Present: normal appearance, soft, normal bowel sounds Uterus: Present: normal, firm, fundal height below umbilicus Extremities: Present: normal Incision: Present: normal, dry, intact
--- NOTE | 2020-05-07 11:39 | Discharge Summary ---
Providers - Providers Date of Admission: 05/01/20 20:26 Date of discharge: 05/07/20 Attending physician: ABDIRAHMAN HUERTA Primary care physician: ABDIRAHMAN HUERTA Hospitalization Reason for admission: induction of labor Delivery: Procedure: primary low transverse Episiotomy: none Laceration: none Incision: normal, dry, intact Other procedures: none complications: none Discharge diagnosis: IUP at term delivered baby: male Condition at discharge: Good Disposition: DC- TO HOME OR SELFCARE Plan - Discharge Medications Prescriptions: Ibuprofen [Motrin 800 MG tab] 800 mg PO Q6H PRN #30 tablet PRN Reason: Pain, Mild (1-3) oxyCODONE /ACETAMINOPHEN [Percocet 5/325 mg] 1 tab PO Q6H PRN #30 tablet PRN Reason: Pain, Moderate (4-6) - Provider Discharge Summary Activity: routine, no sex for 6 weeks, no heavy lifting 4 weeks, no strenuous exercise Diet: routine Instructions: routine Additional instructions: [] Smoking cessation referral if applicable(refer to patient education folder for contact #) [] Refer to [facility] Booklet Call your doctor immediately for: * Fever > 100.5 * Heavy vaginal bleeding ( >1 pad per hour) * Severe persistent headache * Shortness of breath * Reddened, hot, painful area to leg or breast * Drainage or odor from incision. * Keep incision clean and dry at all times and follow doctor's instructions regarding bathing/showering - Follow up plan Follow up: FARHEEN FLOYD JR, MD [Staff Physician] - 7 Days
[2020-05-07 16:51] VITALS: BP 120/78
== END 2020-05-07 18:00 | disposition home or self-care (01) | DRG 788 ==
LOC: LD 20:26 → OB 05-06 11:20
PROVIDERS: ADMIT Obstetrics & Gynecology; ATTEND Obstetrics & Gynecology
PROC: 10D00Z1 Extraction of Products of Conception, Low, Open Approach (ICD-10-PCS; principal; 2020-05-05)
DX: O13.4 Gestational [pregnancy-induced] hypertension without significant proteinuria, complicating childbirth (principal); O62.1 Secondary uterine inertia; Z20.828 Contact with and (suspected) exposure to other viral communicable diseases; O14.14 Severe pre-eclampsia complicating childbirth; O99.02 Anemia complicating childbirth; O48.0 Post-term pregnancy; Z37.0 Single live birth; Z3A.41 41 weeks gestation of pregnancy; Z83.3 Family history of diabetes mellitus; Z82.49 Family history of ischemic heart disease and other diseases of the circulatory system
CPT/HCPCS: 36415; 59200; 81001; 82565; 83615; 83735; 84450; 84460; 84550; 85014; 85018; 85027; 86592; 86850; 86900; 86901; 87086; G0378; J0290; J1100; J1885; J2370; J2405; J2590; J2765; J3475; J3490; J7120; U0003